=== PATIENT | female | born 1955 | race Caucasian/White ===

== ENCOUNTER 2024-03-27 13:19 | Inpatient (IN) | payer OTHER ==
[2024-03-27 14:51] LABS: BASO % 0.7 % (0-2.0); EOS % 1.9 % (0-4.5); HEMATOCRIT 37.2 % (32.4-45.2); HEMOGLOBIN 12.4 GM/dL (10.7-15.3); LYMPH % 15.6 % (8-40); MCH 29.1 pg (25.7-33.7); MCHC 33.4 g/dl (32.0-36.0); MEAN CELL VOLUME 87.3 fl (80-96); MEAN PLT VOLUME 6.7 fl (7.5-11.1); MONO % 9.4 % (3.8-10.2); NEUT % 72.4 % (42.8-82.8); PLATELET COUNT 482 10^3/uL (134-434); RBC 4.26 M/mm3 (3.60-5.2); RDW 14.1 % (11.6-15.6); WHITE BLOOD COUNT 10.9 K/mm3 (4.0-10.0)
[2024-03-27 14:57] LABS: INR 1.12 (0.83-1.09); PROTHROMBIN TIME (PATIENT) 12.6 SEC (9.7-13.0)
[2024-03-27 14:59] LABS: ACTIVATED PTT 33.3 SECONDS (25.2-36.5)
[2024-03-27] MEDS: LACTATED RINGERS SOLUTION 1000 ML INFUS.BAG IV ONE (15:00)
[2024-03-27 15:10] LABS: POTASSIUM 4.1 mmol/L (3.5-5.1)
[2024-03-27 15:13] LABS: ALBUMIN 3.1 g/dl (3.4-5.0); BLOOD UREA NITROGEN 16.4 mg/dL (7-18); MAGNESIUM 1.9 mg/dL (1.8-2.4)
[2024-03-27 15:16] LABS: CREATININE 0.7 mg/dL (0.55-1.3)
[2024-03-27 15:17] LABS: BILIRUBIN,TOTAL 0.3 mg/dL (0.2-1); TOT PROT 8.4 g/dl (6.4-8.2)
[2024-03-27] MEDS ORDERED: CEFTRIAXONE 1 GM/50 ML BAG ONE (15:20)
[2024-03-27] MEDS ORDERED: AZITHROMYCIN IVPB 500 MG/250 ML BAG IVPB ONE (15:20)
[2024-03-27 15:21] LABS: N-TERMINAL BNP 218.4 pg/ml (5-125)
[2024-03-27] MEDS: CEFTRIAXONE 1,000 MG in DEXTROSE 5%-WATER - 50 ML IVPB ONE (16:23)
[2024-03-27] MEDS: AZITHROMYCIN IVPB 500 MG in DEXTROSE 5%-WATER - 250 ML IVPB ONE (17:05)
[2024-03-28] MEDS ORDERED: CEFTRIAXONE 1 GM/50 ML BAG ONE (10:13)
[2024-03-28] MEDS: ENOXAPARIN NA (PORCINE) 40 MG/0.4 ML DISP.SYRIN SQ SCH (10:14)
[2024-03-28] MEDS: CEFTRIAXONE 1 GM in DEXTROSE 5%-WATER - 50 ML IVPB SCH (10:15)
[2024-03-28] MEDS: AZITHROMYCIN IVPB 250 MG in DEXTROSE 5%-WATER - 250 ML IVPB SCH (11:12)
[2024-03-28 11:52] VITALS: BMI 37.0
[2024-03-29 09:39] LABS: BASO % 0.5 % (0-2.0); EOS % 2.8 % (0-4.5); HEMOGLOBIN 11.9 GM/dL (10.7-15.3); LYMPH % 19.4 % (8-40); MCH 29.7 pg (25.7-33.7); MEAN CELL VOLUME 87.4 fl (80-96); MEAN PLT VOLUME 7.4 fl (7.5-11.1); NEUT % 66.3 % (42.8-82.8); PLATELET COUNT 511 10^3/uL (134-434); RBC 4.01 M/mm3 (3.60-5.2); RDW 13.9 % (11.6-15.6); WHITE BLOOD COUNT 9.6 K/mm3 (4.0-10.0)
[2024-03-29 10:10] LABS: POTASSIUM 4.2 mmol/L (3.5-5.1)
[2024-03-29 10:30] LABS: BLOOD UREA NITROGEN 16.5 mg/dL (7-18); CALCIUM 8.6 mg/dL (8.5-10.1)
[2024-03-29 10:34] LABS: CREATININE 0.6 mg/dL (0.55-1.3)
[2024-03-29 10:35] LABS: BILIRUBIN,TOTAL 0.5 mg/dL (0.2-1)
[2024-03-29 10:45] LABS: ALBUMIN 2.8 g/dl (3.4-5.0)
[2024-03-29] MEDS: ACETAMINOPHEN 325 MG TABLET (FP) PO PRN (14:08)
[2024-03-30] MEDS: AZITHROMYCIN 250 MG TABLET PO SCH (09:02)
[2024-04-01 09:43] LABS: BASO % 0.5 % (0-2.0); EOS % 4.7 % (0-4.5); HEMATOCRIT 33.1 % (32.4-45.2); HEMOGLOBIN 10.9 GM/dL (10.7-15.3); LYMPH % 17.4 % (8-40); MEAN CELL VOLUME 87.7 fl (80-96); MEAN PLT VOLUME 6.9 fl (7.5-11.1); MONO % 10.6 % (3.8-10.2); NEUT % 66.8 % (42.8-82.8); PLATELET COUNT 546 10^3/uL (134-434); RBC 3.77 M/mm3 (3.60-5.2); RDW 13.8 % (11.6-15.6)
[2024-04-03 11:36] LABS: HEMATOCRIT 33.5 % (32.4-45.2); HEMOGLOBIN 11.2 GM/dL (10.7-15.3); MCHC 33.3 g/dl (32.0-36.0); MEAN CELL VOLUME 86.8 fl (80-96); MEAN PLT VOLUME 6.8 fl (7.5-11.1); PLATELET COUNT 597 10^3/uL (134-434); RBC 3.86 M/mm3 (3.60-5.2); RDW 14.1 % (11.6-15.6); WHITE BLOOD COUNT 7.4 K/mm3 (4.0-10.0)
[2024-04-03 11:56] LABS: ALBUMIN 2.5 g/dl (3.4-5.0); CALCIUM 8.6 mg/dL (8.5-10.1)
[2024-04-03 11:57] LABS: BLOOD UREA NITROGEN 17.2 mg/dL (7-18)
[2024-04-03 12:00] LABS: CREATININE 0.7 mg/dL (0.55-1.3)
[2024-04-03 12:01] LABS: BILIRUBIN,TOTAL 0.2 mg/dL (0.2-1); TOT PROT 7.8 g/dl (6.4-8.2)
[2024-04-05 09:55] VITALS: TEMP 98.3
[2024-04-05 15:20] VITALS: BP 143/51; PULSE 67; RESP 18
== END 2024-04-05 17:24 | disposition home or self-care (01) | DRG 194 ==
LOC: JER 13:19 → JERBED 15:46 → J5S 03-28 11:22
PROVIDERS: ADMIT Family Medicine; ATTEND Family Medicine
PROC: 0W9930Z Drainage of Right Pleural Cavity with Drainage Device, Percutaneous Approach (ICD-10-PCS; principal; 2024-03-29)
PROC: BW24ZZZ Computerized Tomography (CT Scan) of Chest and Abdomen (ICD-10-PCS; 2024-03-29)
DX: J18.9 Pneumonia, unspecified organism (principal); J90 Pleural effusion, not elsewhere classified; I10 Essential (primary) hypertension; J45.909 Unspecified asthma, uncomplicated; I44.7 Left bundle-branch block, unspecified; R91.1 Solitary pulmonary nodule; R07.89 Other chest pain; R06.02 Shortness of breath; E66.9 Obesity, unspecified; Z68.37 Body mass index [BMI] 37.0-37.9, adult
CPT/HCPCS: 0241U-QW; 32557; 36415; 71045-TC-FY; 71046-TC-FY; 71250-TC; 71275-TC; 78306-TC; 80053; 83735; 83880; 84484; 85025; 85027; 85610; 85730; 87040; 87070; 87075; 87205; 87899; 93005; 93010; 93306-TC; 99285-25; A9503

== ENCOUNTER 2024-04-21 17:01 | Observation (INO) | payer OTHER ==
[2024-04-21 17:10] VITALS: BMI 37.4
[2024-04-21] MEDS: ACETAMINOPHEN 325 MG TABLET (FP) PO ONE (19:14)
[2024-04-21 19:25] LABS: BASO % 0.6 % (0-2.0); EOS % 6.2 % (0-4.5); HEMATOCRIT 34.4 % (32.4-45.2); HEMOGLOBIN 11.1 GM/dL (10.7-15.3); LYMPH % 30.3 % (8-40); MCH 28.1 pg (25.7-33.7); MCHC 32.4 g/dl (32.0-36.0); MEAN CELL VOLUME 86.8 fl (80-96); MEAN PLT VOLUME 6.9 fl (7.5-11.1); MONO % 8.6 % (3.8-10.2); NEUT % 54.3 % (42.8-82.8); PLATELET COUNT 401 10^3/uL (134-434); RBC 3.97 M/mm3 (3.60-5.2); RDW 15.1 % (11.6-15.6)
[2024-04-21 19:49] LABS: POTASSIUM 4.1 mmol/L (3.5-5.1)
[2024-04-21 19:51] LABS: ALBUMIN 3.2 g/dl (3.4-5.0); BLOOD UREA NITROGEN 18.8 mg/dL (7-18); CALCIUM 9.3 mg/dL (8.5-10.1)
[2024-04-21 19:54] LABS: CREATININE 0.7 mg/dL (0.55-1.3)
[2024-04-21 19:56] LABS: BILIRUBIN,TOTAL 0.2 mg/dL (0.2-1); TOT PROT 7.9 g/dl (6.4-8.2)
[2024-04-21] MEDS ORDERED: ACETAMINOPHEN INJECTION 100 ML IVPB ONE (20:16)
[2024-04-21] MEDS: ACETAMINOPHEN 1000 MG/100 ML BAG IVPB ONE (20:18)
[2024-04-21] MEDS ORDERED: LIDOCAINE 5% TOPICAL PATCH ONE (22:30)
[2024-04-21] MEDS ORDERED: KETOROLAC TROMETHAMINE 15 MG/ML VIAL ONE (22:31)
[2024-04-21] MEDS: KETOROLAC TROMETHAMINE 15 MG/ML VIAL IVPUSH ONE (22:38)
[2024-04-21] MEDS: LIDOCAINE 5% TOPICAL PATCH TP ONE (22:39)
[2024-04-21] MEDS: LIDOCAINE PATCH REMOVAL MC SCH (22:39)
[2024-04-22 07:02] LABS: HEMATOCRIT 34.3 % (32.4-45.2); HEMOGLOBIN 11.2 GM/dL (10.7-15.3); MCH 28.5 pg (25.7-33.7); MCHC 32.6 g/dl (32.0-36.0); MEAN CELL VOLUME 87.6 fl (80-96); MEAN PLT VOLUME 7.1 fl (7.5-11.1); PLATELET COUNT 387 10^3/uL (134-434); RBC 3.92 M/mm3 (3.60-5.2); RDW 14.7 % (11.6-15.6); WHITE BLOOD COUNT 6.9 K/mm3 (4.0-10.0)
[2024-04-22 07:21] LABS: POTASSIUM 4.1 mmol/L (3.5-5.1)
[2024-04-22 07:23] LABS: BLOOD UREA NITROGEN 17.2 mg/dL (7-18); MAGNESIUM 1.9 mg/dL (1.8-2.4)
[2024-04-22 07:26] LABS: CREATININE 0.7 mg/dL (0.55-1.3)
[2024-04-22 09:41] VITALS: RESP 18
[2024-04-22] MEDS ORDERED: ASPIRIN COATED 81 MG TABLET.EC ONE (09:48)
[2024-04-22] MEDS ORDERED: ENOXAPARIN NA (PORCINE) 40 MG/0.4 ML DISP.SYRIN SQ ONE (09:49)
[2024-04-22] MEDS ORDERED: ACETAMINOPHEN 325 MG TABLET (FP) ONE (09:49)
[2024-04-22] MEDS: ACETAMINOPHEN 325 MG TABLET (FP) PO PRN (09:51)
[2024-04-22] MEDS: ENOXAPARIN NA (PORCINE) 40 MG/0.4 ML DISP.SYRIN SQ SCH (09:51)
[2024-04-22] MEDS: ASPIRIN COATED 81 MG TABLET.EC PO SCH (09:51)
[2024-04-22] MEDS: LOSARTAN 50MG/HCTZ 12.5MG 1 TAB PO SCH (09:51)
[2024-04-22] MEDS ORDERED: KETOROLAC TROMETHAMINE 15 MG/ML VIAL IVPUSH ONE (21:57)
[2024-04-22] MEDS: KETOROLAC TROMETHAMINE 15 MG/ML VIAL IVPUSH ONE (23:04)
[2024-04-23 14:04] VITALS: TEMP 97.7
[2024-04-23 14:05] VITALS: BP 130/82; PULSE 64
== END 2024-04-23 14:46 | disposition home or self-care (01) ==
LOC: JER 17:01 → JERBED 21:39 → J8W 04-22 10:23
PROVIDERS: ADMIT Internal Medicine; ATTEND Family Medicine
PROC: 3E033NZ Introduction of Analgesics, Hypnotics, Sedatives into Peripheral Vein, Percutaneous Approach (ICD-10-PCS; principal; 2024-04-21)
PROC: 3E023GC Introduction of Other Therapeutic Substance into Muscle, Percutaneous Approach (ICD-10-PCS; 2024-04-21)
PROC: 3E0333Z Introduction of Anti-inflammatory into Peripheral Vein, Percutaneous Approach (ICD-10-PCS; 2024-04-21)
DX: R07.9 Chest pain, unspecified (principal); J45.909 Unspecified asthma, uncomplicated; R91.8 Other nonspecific abnormal finding of lung field; I10 Essential (primary) hypertension; M54.9 Dorsalgia, unspecified; I44.7 Left bundle-branch block, unspecified; R73.03 Prediabetes; E66.9 Obesity, unspecified; Z86.11 Personal history of tuberculosis
CPT/HCPCS: 36415; 71046-TC-FY; 71250-TC; 80048; 80053; 83735; 84484; 85025; 85027; 93005; 93010; 96372; 96374; 96375; 96376; 99285-25; G0378; J0131